=== PATIENT | female | born 1995 | race Caucasian/White ===

== ENCOUNTER 2016-05-15 12:31 | Emergency (ER) | payer OTHER ==
[2016-05-15 13:54] VITALS: BP 93/63
[2016-05-15] MEDS ORDERED: Albuterol 2.5 MG/3 ML NEB.SOL* (0.083%) INH ONE (14:17)
--- NOTE | 2016-05-15 14:28 | UC ---
Throat Pain/Nasal Ronak HPI - HPI Summary HPI Summary: patient has a very sore throat, difficulty taking a deep breath, gets SOB easily denies fever, has sinus congestion - History of Current Complaint Chief Complaint: UCRespiratory Stated Complaint: COUGH Time Seen by Provider: 05/15/16 14:12 Hx Obtained From: Patient Hx Last Menstrual Period: depo shot ?: No Onset/Duration: Sudden Onset, Lasting Days Severity: Severe Pain Intensity: 8 Pain Scale Used: 0-10 Numeric Cough: None Associated Signs & Symptoms: Positive: Dysphagia, Wheezing, Sinus Discomfort, Nasal Discharge - Epiglottits Risk Factors Epiglottis Risk Factors: Negative - Allergies/Home Medications Allergies/Adverse Reactions: Allergies Allergy/AdvReac Type Severity Reaction Status Date / Time No Known Allergies Allergy Verified 05/15/16 13:54 PMH/Surg Hx/FS Hx/Imm Hx Previously Healthy: Yes - Surgical History Surgical History: None - Family History Known Family History: Negative: Blood Disorder - Social History Alcohol Use: None Substance Use Type: None Smoking Status (MU): Heavy Every Day Tobacco Smoker Amount Used/How Often: ~ 1 ppd Length of Time of Smoking/Using Tobacco: started ~ age 15 - Immunization History Most Recent Influenza Vaccination: [id number] Review of Systems Constitutional: Fatigue Skin: Negative Eyes: Negative ENT: Sore Throat Respiratory: Shortness Of Breath, Cough Cardiovascular: Negative Gastrointestinal: Negative Genitourinary: Negative Motor: Negative Neurovascular: Negative Musculoskeletal: Negative Neurological: Headache Psychological: Negative All Other Systems Reviewed And Are Negative: Yes Physical Exam Triage Information Reviewed: Yes Appearance: Well-Nourished, Ill-Appearing, Pain Distress Vital Signs: Initial Vital Signs Temp 98.5 F 05/15/16 13:51 Pulse 77 05/15/16 13:51 Resp 16 05/15/16 13:51 BP 93/63 05/15/16 13:51 Pulse Ox 97 05/15/16 13:51 Vital Signs Reviewed: Yes Eye Exam: Normal Eyes: Positive: Conjunctiva Clear ENT: Positive: Pharyngeal erythema, Nasal congestion, Nasal drainage, TMs normal , Tonsillar swelling Dental Exam: Normal Neck exam: Normal Neck: Positive: Supple, Nontender, Enlarged Nodes @ - left cervical Respiratory Exam: Normal Respiratory: Positive: Chest non-tender, Decreased breath sounds, Rhonchi, Wheezing, Inspiration Cardiovascular Exam: Normal Cardiovascular: Positive: RRR, No Murmur, Pulses Normal Abdominal Exam: Normal Abdomen Description: Positive: Nontender, No Organomegaly, Soft Bowel Sounds: Positive: Present Musculoskeletal Exam: Normal Musculoskeletal: Positive: Strength Intact, ROM Intact, No Edema Neurological Exam: Normal Neurological: Positive: Alert, Muscle Tone Normal Psychological Exam: Normal Skin Exam: Normal Throat Pain/Nasal Course/Dx - Course Course Of Treatment: history obtained, exam performed, meds reviewed, rapid strep obtained and is neg, treated for bronchitis - Differential Dx/Diagnosis Differential Diagnosis/HQI/PQRI: Laryngitis, Otitis Media, Pharyngitis, Sinusitis, Tonsillitis, URI Provider Diagnoses: bronchitis Discharge - Discharge Plan Condition: Stable Disposition: HOME Prescriptions: Albuterol HFA INHALER* [Ventolin HFA Inhaler*] 2 puff INH Q4H PRN #1 mdi PRN Reason: Cough predniSONE TAB* [Deltasone TAB*] 40 mg PO DAILY #10 tab Patient Education Materials: Acute Bronchitis (ED) Additional Instructions: take the medication as prescribed, tylenol for pain, increase your fluid intake and get plenty of rest.
== END 2016-05-15 15:18 | disposition home or self-care (01) ==
LOC: UCCORT 12:31
DX: J40 Bronchitis, not specified as acute or chronic (principal); F17.210 Nicotine dependence, cigarettes, uncomplicated
CPT/HCPCS: 87651; 99212; G0463

== ENCOUNTER 2017-05-09 10:17 | Emergency (ER) | payer OTHER ==
[2017-05-09 12:26] VITALS: BP 124/64
--- NOTE | 2017-05-09 13:17 | ED ---
Respiratory - HPI Summary HPI Summary: 21 yr old with three days of runny nose, cough, myalgias, chills, and itchy ears now. She has been around people with influenza and thinks she has it. Denies SOB. - History of Current Complaint Chief Complaint: UCGeneralIllness Stated Complaint: EAR ACHE/FLU LIKE SXS Time Seen by Provider: 05/09/17 13:09 Pain Intensity: 4 - Allergy/Home Medications Allergies/Adverse Reactions: Allergies Allergy/AdvReac Type Severity Reaction Status Date / Time No Known Allergies Allergy Verified 05/09/17 12:22 Home Medications: Home Medications Acetaminophen TAB* [Tylenol TAB*] 650 mg PO Q4H PRN 05/09/17 [History Confirmed 05/09/17] PMH/Surg Hx/FS Hx/Imm Hx Infectious Disease History: No Infectious Disease History: Denies: Hx Clostridium Difficile, Hx Hepatitis, Hx Human Immunodeficiency Virus (HIV), Hx of Known/Suspected MRSA, Hx Shingles, Hx Tuberculosis, Hx Known/ Suspected VRE, Hx Known/Suspected VRSA, History Other Infectious Disease, Traveled Outside the in Last 30 Days - Family History Known Family History: Positive: None Negative: Blood Disorder - Social History Alcohol Use: None Substance Use Type: Reports: None Smoking Status (MU): Heavy Every Day Tobacco Smoker Type: Cigarettes Amount Used/How Often: ~ 1 ppd Length of Time of Smoking/Using Tobacco: started ~ age 15 Review of Systems Positive: Chills, Fatigue Positive: Sore Throat, Ear Ache, Nasal Discharge Positive: Cough Positive: Myalgia All Other Systems Reviewed And Are Negative: Yes Physical Exam Triage Information Reviewed: Yes Vital Signs On Initial Exam: Initial Vitals Temp Pulse Resp BP Pulse Ox 99 F 96 16 124/64 98 05/09/17 12:19 05/09/17 12:19 05/09/17 12:19 05/09/17 12:19 05/09/17 12:19 Vital Signs Reviewed: Yes Appearance: Positive: Well-Appearing, No Pain Distress Skin: Positive: Warm, Skin Color Reflects Adequate Perfusion Head/Face: Positive: Normal Head/Face Inspection Eyes: Positive: EOMI ENT: Positive: Pharynx normal, Nasal congestion, TMs normal Neck: Positive: Supple, Nontender Respiratory/Lung Sounds: Positive: Clear to Auscultation, Breath Sounds Present Cardiovascular: Positive: RRR. Negative: Murmur Abdomen Description: Positive: Nontender Musculoskeletal: Positive: Strength/ROM Intact Neurological: Positive: Sensory/Motor Intact, Alert, Oriented to Person Place, Time, CN Intact II-III Psychiatric: Positive: Normal - Darling Coma Scale Best Eye Response: 4 - Spontaneous Best Motor Response: 6 - Obeys Commands Best Verbal Response: 5 - Oriented Coma Scale Total: 15 Diagnostics - Vital Signs Vital Signs Temp Pulse Resp BP Pulse Ox 05/09/17 12:19 99 F 96 16 124/64 98 - Laboratory Lab Statement: Any lab studies that have been ordered have been reviewed, and results considered in the medical decision making process. Disposition - Course Course Of Treatment: 21yr old with flu symptoms. plan DC home. tamiflu - Diagnoses Provider Diagnoses: Influenza Discharge - Discharge Plan Condition: Good Disposition: HOME Prescriptions: Oseltamivir CAP* [Tamiflu CAP*] 75 mg PO BID #10 cap Patient Education Materials: Influenza (ED) Referrals: Kaylin Villareal MD [Primary Care Provider] -
== END 2017-05-09 13:19 | disposition home or self-care (01) ==
LOC: UCCORT 10:17
DX: J11.1 Influenza due to unidentified influenza virus with other respiratory manifestations (principal); Z20.828 Contact with and (suspected) exposure to other viral communicable diseases; F17.210 Nicotine dependence, cigarettes, uncomplicated
CPT/HCPCS: 99212; G0463

== ENCOUNTER 2017-07-17 15:44 | Emergency (ER) | payer OTHER ==
[2017-07-17 16:30] VITALS: BP 111/56
[2017-07-17] MEDS ORDERED: Dexamethasone IV* 10 MG in NS 0.9% 50 ML* 50 ML IVPB ONE (17:57)
[2017-07-17] MEDS ORDERED: Benzonatate CAP* 100 MG PO ONE (17:58)
[2017-07-17] MEDS ORDERED: Dexamethasone IV* 10 MG in NS 0.9% 50 ML* 50 ML ONE (18:01)
--- NOTE | 2017-07-17 18:07 | UC ---
Respiratory Complaint HPI - HPI Summary HPI Summary: 21 year old female with no significant pmhx here for cough, congestion for two days. Reports cough with green sputum. Her children and are also sick. Posttussive vomitignX2. No chest pain or sob. - History of Current Complaint Chief Complaint: UCRespiratory Stated Complaint: COUGH/ST/RUNNY NOSE Time Seen by Provider: 07/17/17 17:54 Hx Obtained From: Patient Hx Last Menstrual Period: unknown, depo Onset/Duration: Sudden Onset Pain Intensity: 0 Character: Cough: Productive Aggravating Factors: Nothing Alleviating Factors: OTC Meds Associated Signs And Symptoms: Positive: Fever, URI, Nasal Congestion - Allergies/Home Medications Allergies/Adverse Reactions: Allergies Allergy/AdvReac Type Severity Reaction Status Date / Time No Known Allergies Allergy Verified 05/09/17 12:22 Home Medications: Home Medications Omeprazole CAP* [Prilosec CAP* 20 MG] 20 mg PO DAILY 07/17/17 [History Confirmed 07/17/17] Sertraline* [Zoloft*] 25 mg PO DAILY 07/17/17 [History Confirmed 07/17/17] medroxyPROGESTERone ACETATE* [DEPO-Provera] 150 mg IM DAILY 07/17/17 [History Confirmed 07/17/17] PMH/Surg Hx/FS Hx/Imm Hx Previously Healthy: Yes - Surgical History Surgical History: None - Family History Known Family History: Positive: None Negative: Blood Disorder - Social History Alcohol Use: None Substance Use Type: None Smoking Status (MU): Heavy Every Day Tobacco Smoker Type: Cigarettes Amount Used/How Often: ~ 1 ppd Length of Time of Smoking/Using Tobacco: started ~ age 15 - Immunization History Most Recent Influenza Vaccination: [id number] Review of Systems Constitutional: Fever, Chills Skin: Negative Eyes: Negative ENT: Sinus Congestion Respiratory: Cough Cardiovascular: Negative Gastrointestinal: Negative Genitourinary: Negative Motor: Negative Neurovascular: Negative Musculoskeletal: Negative Neurological: Negative Psychological: Negative All Other Systems Reviewed And Are Negative: Yes Physical Exam Triage Information Reviewed: Yes Appearance: Well-Appearing Vital Signs: Initial Vital Signs Temp 36.7 C 07/17/17 16:20 Pulse 83 07/17/17 16:20 Resp 18 07/17/17 16:20 BP 111/56 07/17/17 16:20 Pulse Ox 100 07/17/17 16:20 Eye Exam: Normal ENT: Positive: Pharyngeal erythema. Negative: TM red, Tonsillar swelling, Muffled voice Respiratory Exam: Normal Respiratory: Positive: Normal breath sounds, No respiratory distress, No accessory muscle use Cardiovascular Exam: Normal Musculoskeletal Exam: Normal Skin Exam: Normal UC Diagnostic Evaluation - Laboratory O2 Sat by Pulse Oximetry: 100 Respiratory Course/Dx - Course Course Of Treatment: 21 year old female here for URI. - Differential Dx/Diagnosis Provider Diagnoses: URI Discharge - Sign-Out/Discharge Documenting (check all that apply): Discharge/Admit/Transfer - Discharge Plan Condition: Good Disposition: HOME Prescriptions: Acetaminop/Codeine 30 MG TAB* [Tylenol/Codeine 30 MG TAB*] 1 tab PO Q8H PRN #12 tab MDD 2 PRN Reason: Cough guaiFENesin LIQ* [Robitussin*] 5 ml PO Q4H PRN 10 Days #1 bottle PRN Reason: Cough Referrals: Kaylin Villareal MD [Primary Care Provider] - - Billing Disposition and Condition Condition: GOOD Disposition: HOME
[2017-07-17] MEDS ORDERED: Dexamethasone IV* 4 MG/ML 1 ML (4 MG) ONE (18:13)
== END 2017-07-17 18:47 | disposition home or self-care (01) ==
LOC: UCCORT 15:44
DX: J06.9 Acute upper respiratory infection, unspecified (principal); F17.210 Nicotine dependence, cigarettes, uncomplicated
CPT/HCPCS: 96372; 99212; A9270-GY; G0463; J1100

== ENCOUNTER 2017-07-20 17:59 | Emergency (ER) | payer OTHER ==
[2017-07-20 18:10] VITALS: BP 118/62
[2017-07-20] MEDS ORDERED: Albuterol HFA INHALER* 8 gm MDI INH ONE (20:16)
[2017-07-20] MEDS ORDERED: Amoxicillin/Clavulanate TAB* 875 MG PO ONE (20:16)
--- NOTE | 2017-07-20 20:30 | UC ---
UC General HPI - HPI Summary HPI Summary: 21 yo female presents with , c/o worse cough, sinus pressure, and L maxillary pain. Pain started yesterday. + subj fever. + yellow green sputum coughed up and + bloody yellow nasal mucus. + cough, no sob / cp (except with cough) / palpitations. No GI / reported. No rash. 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 No fever / chills. No sob, although does smoke, and does occasionally wheeze. Has used albuterol in the past, but doesn't have any now. Has been using medication as prescribed at last [facility] visit (see [facility]) but without improvement in sx. Now c/o L facial pain, worse with movement. Denies dental pain perse, but not sure if radiated pain. No rash. No GI issues sign. Previously Healthy: Yes - Surgical History Surgical History: None - Family History Known Family History: Positive: None Negative: Blood Disorder - Social History Alcohol Use: None Substance Use Type: None Smoking Status (MU): Heavy Every Day Tobacco Smoker Type: Cigarettes Amount Used/How Often: ~ 1 ppd Length of Time of Smoking/Using Tobacco: started ~ age 15 - Immunization History Most Recent Influenza Vaccination: [id number] Review of Systems Constitutional: Fatigue Skin: Negative Eyes: Negative ENT: Sore Throat - mild st, Nasal Discharge, Sinus Congestion Respiratory: Cough Cardiovascular: Negative Gastrointestinal: Negative Genitourinary: Negative Motor: Negative Neurovascular: Negative Musculoskeletal: Negative Neurological: Negative Psychological: Negative Is Patient Immunocompromised?: No All Other Systems Reviewed And Are Negative: Yes Physical Exam Triage Information Reviewed: Yes Appearance: Well-Appearing, Well-Nourished Vital Signs: Initial Vital Signs Temp 98.4 F 07/20/17 18:04 Pulse 97 07/20/17 18:04 Resp 16 07/20/17 18:04 BP 118/62 07/20/17 18:04 Pulse Ox 100 07/20/17 18:04 Vital Signs Reviewed: Yes Eye Exam: Normal - grossly normal ENT: Positive: Pharyngeal erythema - mild post pharyngeal redness, no sore / exudates appreciated, TM dull - dull au Dental Exam: Other - several restorations no antonio abscess / swelling / acute ginvitis teeth bite feels subj ok Neck exam: Normal Neck: Positive: Supple, Nontender, No Lymphadenopathy Respiratory Exam: Other - + rhonchorus cough. + scattered mild wheeze R>L Respiratory: Positive: No respiratory distress, No accessory muscle use, Accessory muscle use Cardiovascular Exam: Normal Cardiovascular: Positive: RRR, No Murmur, Pulses Normal, Brisk Capillary Refill Abdominal Exam: Normal Abdomen Description: Positive: Nontender Musculoskeletal Exam: Normal - moves x 4 ext's gait steady Neurological Exam: Normal - grossly nonfocal Psychological Exam: Normal - conversing easily and appropriately Skin Exam: Normal - no visible or reported rash Course/Dx - Course Course Of Treatment: Reviewed with Ms. Leggett coa / tx plan. Questions as posed answered to the best of my ability. - Differential Dx - Multi-Symptom Provider Diagnoses: Sinusitis. Bronchitis Discharge - Sign-Out/Discharge Documenting (check all that apply): Discharge/Admit/Transfer - Discharge Plan Condition: Stable Disposition: HOME Prescriptions: Albuterol HFA INHALER* [Ventolin HFA Inhaler*] 1 - 2 puff INH Q4H PRN #1 mdi PRN Reason: Wheezing Amoxicillin/Clavulanate TAB* [Augmentin TAB 875*] 875 mg PO BID #20 tab Fluconazole [Diflucan] 150 mg PO DAILY #2 tablet Patient Education Materials: How to Stop Smoking (ED), Sinusitis (ED), Acute Bronchitis (ED), Wheezing (ED) Referrals: Kaylin Villareal MD [Primary Care Provider] - Additional Instructions: Follow up with your primary care physician, approx 2 weeks for recheck. Follow up with your dentist the week after next for dental check. Seek medical attention for worse or new problems in the meantime. Drink plenty of fluids. - Billing Disposition and Condition Condition: STABLE Disposition: HOME
== END 2017-07-20 20:47 | disposition home or self-care (01) ==
LOC: UCCORT 17:59
DX: J32.9 Chronic sinusitis, unspecified (principal); J40 Bronchitis, not specified as acute or chronic; F17.210 Nicotine dependence, cigarettes, uncomplicated
CPT/HCPCS: 99213; A9270-GY; G0463

== ENCOUNTER 2017-09-27 12:57 | Emergency (ER) | payer SELFPAY ==
[2017-09-27 13:15] VITALS: BP 110/67
--- NOTE | 2017-09-27 13:19 | UC ---
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 This morning started to notice blood in urine. Denies taking AZO or pyridium. Possibility of . " -Denies f/c/n/v/LBP. - History Of Current Complaint Chief Complaint: UCGU Stated Complaint: URINARY RECHECK Time Seen by Provider: 09/27/17 13:18 Hx Last Menstrual Period: unknown, depo Pain Intensity: 5 - Allergies/Home Medications Allergies/Adverse Reactions: Allergies Allergy/AdvReac Type Severity Reaction Status Date / Time No Known Allergies Allergy Verified 09/27/17 13:12 PMH/Surg Hx/FS Hx/Imm Hx Previously Healthy: No Psychological History: Depression - Surgical History Surgical History: Yes Surgery Procedure, Year, and Place: tonsillectomy (unsure of adenoids) - Family History Known Family History: Negative: Blood Disorder - Social History Alcohol Use: None Substance Use Type: None Smoking Status (MU): Heavy Every Day Tobacco Smoker Type: Cigarettes Amount Used/How Often: ~ 1 ppd Length of Time of Smoking/Using Tobacco: started ~ age 15 - Immunization History Most Recent Influenza Vaccination: [id number] Review of Systems Constitutional: Negative Skin: Negative Eyes: Negative ENT: Negative Respiratory: Negative Cardiovascular: Negative Gastrointestinal: Negative Genitourinary: Hematuria, Frequency, Urgency Motor: Negative Neurovascular: Negative Musculoskeletal: Negative Neurological: Negative Psychological: Negative Is Patient Immunocompromised?: No All Other Systems Reviewed And Are Negative: Yes Physical Exam Triage Information Reviewed: Yes Appearance: Well-Appearing, No Pain Distress, Well-Nourished Vital Signs: Initial Vital Signs Temp 99.2 F 09/27/17 13:07 Pulse 92 09/27/17 13:07 Resp 18 09/27/17 13:07 BP 110/67 09/27/17 13:07 Pulse Ox 100 09/27/17 13:07 Vital Signs Reviewed: Yes Eye Exam: Normal ENT Exam: Normal ENT: Positive: Pharynx normal Neck exam: Normal Neck: Positive: Supple, Nontender, No Lymphadenopathy Respiratory Exam: Normal Respiratory: Positive: Lungs clear, Normal breath sounds, No respiratory distress Cardiovascular Exam: Normal Cardiovascular: Positive: RRR, No Murmur, Pulses Normal Abdomen Description: Positive: Soft, Other: - mild suprapubic tenderness. Negative: CVA Tenderness (R), CVA Tenderness (L), Distended, Guarding Neurological Exam: Normal Psychological Exam: Normal Skin Exam: Normal Complaint Female Dx - Course Course Of Treatment: UA + nitrites. Neg HCG - Differential Dx/Diagnosis Differential Diagnosis/HQI/PQRI: Renal Colic, Urinary Tract Infection Provider Diagnoses: UTI Discharge - Sign-Out/Discharge Documenting (check all that apply): Post-Discharge Follow Up - Discharge Plan Condition: Stable Disposition: HOME Prescriptions: Nitrofurantoin Monohyd/M-Cryst [Macrobid 100 mg Capsule] 100 mg PO BID 5 Days # 10 cap Patient Education Materials: Urinary Tract Infection in Women (ED) Referrals: Kaylin Villareal MD [Primary Care Provider] - Additional Instructions: -Make sure you take all of the medicine. You should go to the ER if your symptoms increase or worsen. You should have a repeat urine test done after your symptoms are resolved to be certain that the blood has cleared up completely. - Billing Disposition and Condition Condition: STABLE Disposition: Home
== END 2017-09-27 13:46 | disposition home or self-care (01) ==
LOC: UCCORT 12:57
DX: N39.0 Urinary tract infection, site not specified (principal); F17.210 Nicotine dependence, cigarettes, uncomplicated
CPT/HCPCS: 81003; 84702; 87077; 87086; 87186; 99212; G0463